=== PATIENT | male | born 1965 | race Two or more races ===

== ENCOUNTER 2022-05-12 10:00 | Inpatient (IN) | payer OTHER ==
[~2022-05-12] VITALS: Ht 167.6 cm; Wt 59.9 kg
[2022-05-12] MEDS ORDERED: ALLERGY RELIE15.8 ML NASAL (15:20)
[2022-05-12] MEDS ORDERED: MULTIPLE VITAM1 EAC2 PO (15:20)
[2022-05-12] MEDS ORDERED: ALLERGY RELIEF10 M4 PO (15:20)
[2022-05-21] MEDS ORDERED: GABAPENTIN300 MG PO (17:08)
== END 2022-05-21 18:40 | disposition home or self-care (01) | DRG 331 ==
LOC: SURH 05-18 08:30 → O/R 05-18 08:30 → SURH 05-18 10:00
PROVIDERS: ADMIT Surgery; ATTEND Surgery
PROC: 0DBP4ZZ Excision of Rectum, Percutaneous Endoscopic Approach (ICD-10-PCS; 2022-05-18)
PROC: 0DJD8ZZ Inspection of Lower Intestinal Tract, Via Natural or Artificial Opening Endoscopic (ICD-10-PCS; 2022-05-18)
PROC: 0DTN4ZZ Resection of Sigmoid Colon, Percutaneous Endoscopic Approach (ICD-10-PCS; principal; 2022-05-18 14:30)
DX: K57.32 Diverticulitis of large intestine without perforation or abscess without bleeding (principal); Z20.822 Contact with and (suspected) exposure to COVID-19